=== PATIENT | male | born 1960 | race Caucasian/White ===

== ENCOUNTER → 2018-03-17 12:26 | Outpatient (CLI) | payer OTHER, SELFPAY ==
--- NOTE | 2018-03-17 12:31 | DI.RAD.S_ITS ---
PROCEDURE: XR KNEE RT 3V INDICATIONS: Bilateral knee pain s/p fall w/ direct patellar impact. TECHNIQUE: 3 views of the knee were acquired. COMPARISON: None. FINDINGS: Bones: No fractures or dislocations. No suspicious bony lesions. Soft tissues: Small knee joint effusion. No suspicious soft tissue calcifications. IMPRESSION: 1. Small knee joint effusion. No fracture nor osseous lesion. If symptoms or clinical suspicion for pathology persists, further assessment with repeat plain films or advanced imaging is recommended. Dictated by: Michelle Canales M.D. on 03/17/2018 at 12:54 Approved by: Michelle Canales M.D. on 03/17/2018 at 12:55
--- NOTE | 2018-03-17 12:31 | DI.RAD.S_ITS ---
PROCEDURE: XR KNEE LT 3V INDICATIONS: Bilateral knee pain s/p fall w/ direct patellar impact. TECHNIQUE: 3 views of the knee were acquired. COMPARISON: None. FINDINGS: Bones: No fractures or dislocations. No suspicious bony lesions. Soft tissues: Small knee joint effusion. No suspicious soft tissue calcifications. IMPRESSION: 1. No fracture. If symptoms or clinical suspicion for pathology persists, further assessment with repeat plain films or a venous imaging is recommended. 2. Small knee joint effusion. Dictated by: Michelle Canales M.D. on 03/17/2018 at 12:54 Approved by: Michelle Canales M.D. on 03/17/2018 at 12:54
== END ==
PROVIDERS: PCP Specialist; Visit Provider Physician Assistant
DX: M25.561 Pain in right knee (principal); M25.562 Pain in left knee; M25.462 Effusion, left knee; M25.461 Effusion, right knee
CPT/HCPCS: 73562

== ENCOUNTER → 2024-09-11 09:33 | Outpatient (CLI) | payer MEDICARE, OTHER, SELFPAY ==
[2024-09-11 10:15] LABS: Hemoglobin A1C% w Est Avg Glu 5.2 % (4.0-6.0)
--- NOTE | 2024-09-11 10:30 | EKG_ITS ---
[address] [address] Test Date: 2024-09-11 Pat Name: Ruperto Marrero Department: [facility] Room: Gender: Male Mobility Developer: NINA : 1960 Requested By: Order Number: [id number] Reading MD: Ashish Cobb MD Measurements Intervals [place] Rate: 51 P: -16 IA: 196 QRS: -52 QRSD: 148 T: 22 QT: 458 QTc: 422 Interpretive Statements Sinus bradycardia Right bundle branch block Left anterior fascicular block Bifascicular block NO PRIOR TRACING Electronically Signed On 09-11-2024 11:37:29 PST by Ashish Cobb MD
== END ==
PROVIDERS: PCP Physician Assistant; Referring Provider Orthopaedic Surgery; Visit Provider Orthopaedic Surgery
DX: Z01.818 Encounter for other preprocedural examination (principal); R73.9 Hyperglycemia, unspecified
CPT/HCPCS: 36415; 83036; 93005